=== PATIENT | male | born 1995 | race Caucasian/White ===

== ENCOUNTER 2023-11-03 18:32 | Emergency (ER) | payer SELFPAY ==
[~2023-11-03] VITALS: Ht 182.9 cm; Wt 75.0 kg
[2023-11-03 19:19] VITALS: BP 136/82; PULSE 94; RESP 20; TEMP 98.4; O2SAT 100
== END 2023-11-03 19:30 | disposition left against medical advice (07) ==
LOC: EMS 18:32
DX: Z53.21 Procedure and treatment not carried out due to patient leaving prior to being seen by health care provider (principal)